=== PATIENT | female | born 1995 | race African-American/Black ===

== ENCOUNTER 2020-09-09 07:38 | Inpatient (IN) | payer MEDICAID ==
[2020-09-09] MEDS ORDERED: Misoprostol 50 MCG (1/2 of 100 MCG) Tab VAG ONE ×2 (07:40→13:00)
[2020-09-09] MEDS ORDERED: Sodium Chloride 0.9% 10 ML Syringe FLUSH PRN ×2 (07:41→09:47)
[2020-09-09] MEDS ORDERED: diphenhydrAMINE 50 MG/ML SDV IVPUSH PRN ×2 (09:47)
[2020-09-09] MEDS ORDERED: Naloxone 0.4 MG/ML SDV IVPUSH PRN (09:47)
[2020-09-09] MEDS ORDERED: Acetaminophen 325 MG Tab PO PRN (09:47)
[2020-09-09] MEDS ORDERED: Ondansetron 4 MG/2 ML SDV IV PRN (09:47)
[2020-09-09] MEDS ORDERED: Lactated Ringers 1,000 ML IV ONE (09:47)
[2020-09-09] MEDS ORDERED: ePHEDrine 50 MG/ML SDV IVPUSH PRN ×2 (09:47)
[2020-09-09] MEDS ORDERED: Ropivacaine 200 MG in Premix Bag 1 BAG EPIDUR SCH (10:00)
--- NOTE | 2020-09-09 10:15 | PCM.LDHP ---
L&D History of Present Illness - General Date of Service: 09/09/20 Admit Problem/Dx: Patient Status Order with Admit Dx/Problem 09/09/20 09:48 Patient Status [ADT] Routine Admission Diagnosis/Problem Admission Diagnosis/Problem - Related Data Allergies/Adverse Reactions: Allergies Allergy/AdvReac Type Severity Reaction Status Date / Time Penicillins Allergy Hives Verified 08/17/20 16:21 Home Medications: Home Meds Albuterol [Ventolin HFA] 1 - 2 puff IN ASDIRECTED PRN 07/05/20 [History] No122/Iron/Folic Acid [ Multi Tablet] 1 tab PO DAILY 08/17/20 [History] Sertraline [Zoloft] 25 mg PO DAILY 08/17/20 [History] Past Medical History Respiratory History: Reports: Asthma [employer] History: Reports: Other OB/BYN History: Lost baby 2019 states she had her water broke to early. Hematologic History: Reports: Anemia - Past Surgical History Other HEENT Surgeries/Procedures: wears glasses Respiratory Surgical History: Reports: None Social & Family History - Tobacco Use Tobacco Use Status *Q: Never Tobacco User Second Hand Smoke Exposure: No - Caffeine Use Caffeine Use: Reports: Coffee, Soda - Recreational Drug Use Recreational Drug Use: No H&P Review of Systems - Review of Systems: Review Of Systems: See Below General: Reports: No Symptoms HEENT: Reports: No Symptoms Pulmonary: Reports: No Symptoms Cardiovascular: Reports: No Symptoms Gastrointestinal: Reports: No Symptoms Genitourinary: Reports: No Symptoms Musculoskeletal: Reports: No Symptoms Skin: Reports: No Symptoms Psychiatric: Reports: No Symptoms Neurological: Reports: No Symptoms Hematologic/Lymphatic: Reports: No Symptoms Immunologic: Reports: No Symptoms L&D Exam - Exam Exam: See Below - Vital Signs Vital Signs: Last Vital Signs Temp 36.5 C 09/09/20 08:23 Pulse 97 09/09/20 08:23 Resp 16 09/09/20 08:58 BP 103/69 09/09/20 08:58 Pulse Ox 96 09/09/20 08:23 Weight: 68.039 kg - OB Specific Contraction Duration (sec): 30-80 Contraction Frequency (min): 2-4.5 Contraction Intensity: Moderate Movement: Active Heart Tones: Present Heart Rate (FHR) Variability: Moderate (6-25 bmp) Presentation: Vertex - Morales Score Morales Score Cervix Position: Posterior Morales Score Consistency: Soft Morales Score Effacement: 51-70% Morales Score Dilation: Closed Morales Score Infant's Station: -1 ,0 Morales Score Total: 6 - Exam General: Alert, Oriented HEENT: PERRLA, Conjunctiva Clear, EACs Clear, EOMI, Hearing Intact, Mucosa Moist & [place], Nares Patent, Normal Nasal Septum, Posterior Pharynx Clear, TMs Clear Neck: Supple, Trachea Midline Lungs: Clear to Auscultation, Normal Respiratory Effort Cardiovascular: Regular Rate, Regular Rhythm GI/Abdominal Exam: Normal Bowel Sounds, Soft, Non-Tender, No Organomegaly, No Distention, No Abnormal Bruit, No Mass, Pelvis Stable Rectal Exam: Normal Exam, Normal Rectal Tone Genitourinary: Normal external exam, Normal bimanual exam, Normal speculum exam Back Exam: Normal Inspection, Full Range of Motion Extremities: Normal Inspection, Normal Range of Motion, Non-Tender, No Pedal Edema, Normal Capillary Refill Skin: Warm, Dry, Intact Neurological: Cranial Nerves Intact, Reflexes Equal Bilateral Psychiatric: Alert, Normal Affect, Normal Mood - Patient Data Lab Results Last 24 hrs: Laboratory Results - last 24 hr 09/09/20 09/09/20 09/09/20 Range/Units 07:41 07:41 07:51 WBC 8.0 (4.5-11.0) K/uL RBC 4.04 (3.30-5.50) M/uL Hgb 10.4 L (12.0-15.0) g/dL Hct 33.6 L (36.0-48.0) % MCV 83 (80-98) fL MCH 26 L (27-31) pg MCHC 31 L (32-36) % Plt Count 259 (150-400) K/uL Urine Color Yellow (YELLOW) Urine Appearance Clear (CLEAR) Urine pH 7.0 (5.0-8.0) Ur Specific [place] 1.020 (1.008-1.030) Urine Protein Negative (NEGATIVE) mg/dL Urine Glucose (UA) Negative (NEGATIVE) mg/dL Urine Ketones Negative (NEGATIVE) mg/dL Urine Occult Blood Negative (NEGATIVE) Urine Nitrite Negative (NEGATIVE) Urine Bilirubin Negative (NEGATIVE) Urine Urobilinogen 0.2 (0.2-1.0) EU/dL Ur Leukocyte Esterase Negative (NEGATIVE) Urine Opiates Screen Negative (NEGATIVE) Ur Oxycodone Screen Negative (NEGATIVE) Urine Methadone Screen Negative (NEGATIVE) Ur Propoxyphene Screen Negative (NEGATIVE) Ur Barbiturates Screen Negative (NEGATIVE) Ur Tricyclics Screen Negative (NEGATIVE) Ur Phencyclidine Scrn Negative (NEGATIVE) Ur Amphetamine Screen Negative (NEGATIVE) U Methamphetamines Scrn Negative (NEGATIVE) Urine MDMA Screen Negative (NEGATIVE) U Benzodiazepines Scrn Negative (NEGATIVE) U Cocaine Metab Screen Negative (NEGATIVE) U Marijuana (THC) Screen Negative (NEGATIVE) Result Diagrams: 09/09/20 07:51 - Problem List (1) SNOMED Code(s): 43019904 ICD Code: Z34.90 - ENCNTR FOR SUPRVSN OF NORMAL , UNSP, UNSP TRIMESTER Status: Acute Current Visit: Yes Qualifiers: Weeks of gestation: 38 weeks Qualified Code(s): Z3A.38 - 38 weeks gestation of (2) IUGR (intrauterine growth restriction) Status: Acute Priority: High Current Visit: Yes (3) Encounter for induction of labor SNOMED Code(s): 785881157 ICD Code: Z34.90 - ENCNTR FOR SUPRVSN OF NORMAL , UNSP, UNSP TRIMESTER Status: Acute Current Visit: Yes (4) History of SNOMED Code(s): 092923839 ICD Code: Z87.59 - PERSONAL HISTORY OF COMP OF PREG, CHLDBRTH AND THE PUERP Status: Acute Priority: High Current Visit: Yes (5) History of delivery SNOMED Code(s): 204476798 ICD Code: Z87.51 - PERSONAL HISTORY OF PRE-TERM LABOR Status: Acute Current Visit: Yes (6) History of pre-term labor SNOMED Code(s): 141323511 ICD Code: Z87.51 - PERSONAL HISTORY OF PRE-TERM LABOR Status: Acute Current Visit: Yes Problem List Initiated/Reviewed/Updated: Yes Orders Last 24hrs: Active Orders 24 hr Category Date Time Status Patient Status [ADT] Routine ADT 09/09/20 09:48 Active Ambulate [RC] PER UNIT ROUTINE Care 09/09/20 09:47 Active Communication Order [RC] ASDIRECTED Care 09/09/20 09:48 Active Communication Order [RC] ASDIRECTED Care 09/09/20 09:48 Active Communication Order [RC] ROUTINE Care 09/09/20 09:48 Active Communication Order [RC] ROUTINE Care 09/09/20 09:48 Active Communication Order [RC] ROUTINE Care 09/09/20 09:48 Active Non Stress Test [RC] Click to Edit Care 09/09/20 09:48 Active Influenza Vaccine Charge [RC] .DISCHARGE Care 09/09/20 08:28 Active Insert Urinary Catheter [OM.PC] ASDIRECTED Care 09/09/20 10:00 Ordered Local Anesthetic Infusion Pump [RC] ASDIRECTED Care 09/09/20 09:48 Active Notify Provider Vital Signs [RC] PRN Care 09/09/20 09:47 Active Notify Provider [RC] PRN Care 09/09/20 09:48 Active Oxygen Therapy [RC] ASDIRECTED Care 09/09/20 09:48 Active PCEA Epidural [RC] ASDIRECTED Care 09/09/20 09:49 Active Peripheral IV Care [RC] . DIRECTED Care 09/09/20 09:49 Active Pulse Oximetry [RC] ASDIRECTED Care 09/09/20 09:48 Active Up ad Deidra [RC] ASDIRECTED Care 09/09/20 09:47 Active Urinary Catheter Assessment [RC] ASDIRECTED Care 09/09/20 09:49 Active VTE/DVT Education [RC] Click to Edit Care 09/09/20 09:50 Active Vital Signs [RC] PER UNIT ROUTINE Care 09/09/20 09:48 Active Regular Diet [DIET] Diet 09/09/20 Breakfast Active BPP wo NST [US] Routine Exams 09/09/20 07:40 Taken Acetaminophen [TylenoL] Med 09/09/20 09:47 Active 650 mg PO Q4H PRN Flu Vacc [id number](6Mos Up)/Pf [Fluzone Quad [id number] Med 09/10/20 11:00 Once Syringe] 60 mcg IM ONETIME ONE Lactated Ringers [Ringers, Lactated] 1,000 ml Med 09/09/20 09:47 Active IV .BOLUS Naloxone [Narcan] Med 09/09/20 09:47 Active 0.1 mg IVPUSH ASDIRECTED PRN Ondansetron [Zofran] Med 09/09/20 09:47 Ordered 4 mg IV Q4H PRN Oxytocin/Normal Saline [Pitocin in NS 20 Units/1,000 ML Med 09/09/20 10:00 Ordered ] 20 unit in 1,000 ml IV TITRATE Ropivacaine [Naropin 0.2%] 200 mg Med 09/09/20 10:00 Ordered Premix Bag 1 bag EPIDUR ASDIRECTED Sodium Chloride 0.9% [Saline Flush] Med 09/09/20 07:41 Active 10 ml FLUSH ASDIRECTED PRN Sodium Chloride 0.9% [Saline Flush] Med 09/09/20 09:47 Ordered 10 ml FLUSH ASDIRECTED PRN diphenhydrAMINE [Benadryl] Med 09/09/20 09:47 Active 25 mg IVPUSH Q6H PRN diphenhydrAMINE [Benadryl] Med 09/09/20 09:47 Active 50 mg IVPUSH Q6H PRN ePHEDrine [ePHEDrine sulfate] Med 09/09/20 09:47 Active 10 mg IVPUSH ASDIRECTED PRN ePHEDrine [ePHEDrine sulfate] Med 09/09/20 09:47 Active 10 mg IVPUSH ASDIRECTED PRN DVT/VTE Prophylaxis Reflex [OM.PC] Routine Oth 09/09/20 09:47 Ordered Epidural Catheter Management [OM.PC] Routine Oth 09/09/20 09:48 Ordered Epidural Catheter Management [OM.PC] Urgent Oth 09/09/20 09:48 Ordered Peripheral IV Insertion Pediatric [OM.PC] Routine Oth 09/09/20 09:48 Ordered Saline Lock Insert [OM.PC] Routine Oth 09/09/20 07:41 Ordered Saline Lock Insert [OM.PC] Routine Oth 09/09/20 09:48 Ordered Resuscitation Status Routine Resus Stat 09/09/20 09:47 Ordered Medication Orders Acetaminophen (Tylenol) 650 mg PO Q4H PRN PRN Reason: Pain (Mild 1-3) and fever Diphenhydramine HCl (Benadryl) 25 mg IVPUSH Q6H PRN PRN Reason: Itching Diphenhydramine HCl (Benadryl) 50 mg IVPUSH Q6H PRN PRN Reason: Itching Ephedrine Sulfate (Ephedrine Sulfate) 10 mg IVPUSH ASDIRECTED PRN PRN Reason: Hypotension Ephedrine Sulfate (Ephedrine Sulfate) 10 mg IVPUSH ASDIRECTED PRN PRN Reason: Hypotension Ropivacaine 200 mg/ Premix 100 mls @ 0 mls/hr EPIDUR ASDIRECTED PA Lactated Ringer's (Ringers, Lactated) 1,000 mls @ 999 mls/hr IV .BOLUS ONE Stop: 09/09/20 10:47 Oxytocin/Sodium Chloride (Pitocin In Ns 20 Units/1,000 Ml) 20 unit in 1,000 mls @ 6 mls/hr IV TITRATE PA; Protocol Influenza Virus Vaccine (Fluzone Quad Syringe) 60 mcg IM ONETIME ONE Stop: 09/10/20 11:01 Naloxone HCl (Narcan) 0.1 mg IVPUSH ASDIRECTED PRN PRN Reason: Oversedation Ondansetron HCl (Zofran) 4 mg IV Q4H PRN PRN Reason: Nausea/Vomiting Sodium Chloride (Saline Flush) 10 ml FLUSH ASDIRECTED PRN PRN Reason: Keep Vein Open Sodium Chloride (Saline Flush) 10 ml FLUSH ASDIRECTED PRN PRN Reason: Keep Vein Open Assessment/Plan Comment:: 09/09/2020 25 yo here at 38 2/7 for a medical induction for IUGR Patient has been being followed by MFM and planned induction for 38 wks per their guidelines SVE-0.5-60/-1 Cytotec placed vaginally 50 mcg FHTs category one Labs- B positive, HIV neg, Hep B neg, Hep C neg, RPR nonreactive, GBS negative, Rubella Immune, Hgb-10.4 History of loss at 21 weeks Plan- Monitor for active labor monitor FHTS Patient may eat regular diet till epidural placement Patient may have epidural for pain control once labor is established Patient may be up ad deidra Patient may get in tub Plan and anticipate a vaginal delivery
[2020-09-09] MEDS ORDERED: Ropivacaine 100 ML ONE (16:20)
--- NOTE | 2020-09-09 18:23 | PCM.PNLD ---
Labor Progress Note - VS & Meds Vital Signs: Last Vital Signs Temp 36.5 C 09/09/20 14:00 Pulse 80 09/09/20 17:55 Resp 16 09/09/20 17:55 BP 108/74 09/09/20 17:55 Pulse Ox 98 09/09/20 17:55 Active Medications: Current Medications Acetaminophen (Tylenol) 650 mg PO Q4H PRN PRN Reason: Pain (Mild 1-3) and fever Diphenhydramine HCl (Benadryl) 25 mg IVPUSH Q6H PRN PRN Reason: Itching Diphenhydramine HCl (Benadryl) 50 mg IVPUSH Q6H PRN PRN Reason: Itching Ephedrine Sulfate (Ephedrine Sulfate) 10 mg IVPUSH ASDIRECTED PRN PRN Reason: Hypotension Ephedrine Sulfate (Ephedrine Sulfate) 10 mg IVPUSH ASDIRECTED PRN PRN Reason: Hypotension Ropivacaine 200 mg/ Premix 100 mls @ 0 mls/hr EPIDUR ASDIRECTED PA Oxytocin/Sodium Chloride (Pitocin In Ns 20 Units/1,000 Ml) 20 unit in 1,000 mls @ 6 mls/hr IV TITRATE PA; Protocol Last Admin: 09/09/20 17:51 Dose: 2 munits/min, 6 mls/hr Documented by: Influenza Virus Vaccine (Fluzone Quad [id number] Syringe) 60 mcg IM ONETIME ONE Stop: 09/10/20 11:01 Naloxone HCl (Narcan) 0.1 mg IVPUSH ASDIRECTED PRN PRN Reason: Oversedation Ondansetron HCl (Zofran) 4 mg IV Q4H PRN PRN Reason: Nausea/Vomiting Sodium Chloride (Saline Flush) 10 ml FLUSH ASDIRECTED PRN PRN Reason: Keep Vein Open Sodium Chloride (Saline Flush) 10 ml FLUSH ASDIRECTED PRN PRN Reason: Keep Vein Open Discontinued Medications Lactated Ringer's (Ringers, Lactated) 1,000 mls @ 999 mls/hr IV .BOLUS ONE Stop: 09/09/20 10:47 Last Admin: 09/09/20 13:35 Dose: 999 mls/hr Documented by: Ropivacaine (Naropin 0.2%) Confirm Administered Dose 100 mls @ as directed .ROUTE .STK-MED ONE Stop: 09/09/20 16:21 Misoprostol (Cytotec) 50 mcg VAG ONETIME ONE Stop: 09/09/20 07:41 Last Admin: 09/09/20 08:59 Dose: 50 mcg Documented by: Misoprostol (Cytotec) 25 mcg VAG ONETIME ONE Stop: 09/09/20 13:01 Last Admin: 09/09/20 13:23 Dose: Not Given Documented by: - Uterine Contractions Uterine Monitoring Mode: External [employer] Contraction Frequency (min): 1-7 Contraction Duration (sec): 50-80 Contraction Intensity: Strong Uterine Resting Tone: Soft - Monitoring Monitor Mode: External Ultrasound Heart Rate (FHR) Variability: Moderate (6-25 bmp) Accelerations: Present, 15x15 Decelerations: None - Vaginal Exam Dilation (cm): 4 Effacement (Percent): 80 Station: -1 Cervical Position: Midposition Sterile Vaginal Exam Performed By: Radha Roman - Labor Progress (Free Text) Labor Progress: 09/09/2020 Patient requested and epidural and is now comfortable with epidural. SVE-4/80/-1, AROM for clear fluid Pitocin started per protocol FHTs category one-did have a few variables before epidural placement Plan- Continue to monitor labor Continue to monitor FHTs Continue pitocin per protocol Continue epidural for pain management Plan and anticipate a vaginal delivery
[2020-09-09] MEDS ORDERED: Docusate Sodium 100 MG Cap PO PRN (20:29)
[2020-09-09] MEDS ORDERED: Benzocaine 20% Top Spray 56 GM Bottle TOP ONE (20:29)
[2020-09-09] MEDS ORDERED: Ibuprofen 200 MG Tab, 24 Tab Bulk Bottle PO PRN (20:29)
[2020-09-09] MEDS ORDERED: Lanolin 100% Cream 40 GM Tube TOP ONE (20:29)
[2020-09-09] MEDS ORDERED: Acetaminophen 325 MG Tab, 50 Tab Bulk Bottle PO PRN (20:29)
[2020-09-09] MEDS ORDERED: Witch Hazel Medicated Pads 100/Jar TOP ONE (20:29)
--- NOTE | 2020-09-09 20:57 | PCM.DEL ---
L & D Note - General Info Date of Service: 09/09/20 Mother's Due Date: 09/22/20 - Delivery Note Labor: Augmented by Oxytocin Cervical Ripening Method: Misoprostil Delivery Outcome: Livebirth Infant Delivery Method: Spontaneous Vaginal Delivery-Single Delivery Mode: Spontaneous Presentation: Vertex Nuchal Cord: Present (times one), Reduced Anesthesia Type: Epidural Laceration: 1st Degree, Perineal Suture type: Chromic Suture size: 3-0 Placenta: Intact, Spontaneous Cord: 3 Vessels Estimated Blood Loss: 200 Resuscitation Needed: No Morley: Bulb Syringe, Stimulated, Warmed, Whitt Used Provider: Radha Roman Score 1 min: 8 Score 5 min: 9 Second Stage Interventions: Reports: Second Nurse Assessed Progress of Descent, Second Nurse Reviewed Contraction Pattern, Second Nurse Reviewed Heart Tones, Encouragement Given, Pushing Effectively, Pushing, McRobert's Position, Pushing, Stirrups/Leg Supports Delivery Comments (Free Text/Narrative):: 09/09/2020 25 yo delivered a viable female in DOYLE position at 2003 on 09/09/2020 over an intact perineum. After delivery of head a nuchal cord was noted times one and reduced easily. Infant then was delivered rest of way and brought up to mothers abdomen and placed on prewarmed blankets. was dried and stimulated before crying. Delayed cord clamping was done for approximately 90 seconds before double clamping and then father of infant was able to cut the cord. was still not crying or pinking up well so brought to warmer for stimulation and bulb suction. Did deep suction times once for 2ml of clear amniotic fluid and mucous, then began to cry vigorously and pink in color. Infant then brought to mother for skin to skin. APGARS-8/9, weight- 6lbs 7oz, length-19.5 inches, Placenta came Manzano and intact, three vessel cord, EBL-200ml. did have a first degree perineal laceration repaired in usual fashion, no lacerations noted of vagina, labia, rectum or cervix. now skin to skin with mother in labor and delivery room and both stable. Stages of labor- [id number] - General Info Date of Service: 09/09/20 Functional Status: Reports: Pain Controlled - Review of Systems General: Reports: No Symptoms HEENT: Reports: No Symptoms Pulmonary: Reports: No Symptoms Cardiovascular: Reports: No Symptoms Gastrointestinal: Reports: No Symptoms Genitourinary: Reports: No Symptoms Musculoskeletal: Reports: No Symptoms Skin: Reports: No Symptoms Neurological: Reports: No Symptoms Psychiatric: Reports: No Symptoms - Patient Data Vitals - Most Recent: Last Vital Signs Temp 36.5 C 09/09/20 14:00 Pulse 74 09/09/20 18:20 Resp 16 09/09/20 18:20 BP 104/73 09/09/20 18:20 Pulse Ox 98 09/09/20 18:20 Weight - Most Recent: 68.039 kg I&O - Last 24 Hours: Intake & Output 09/09/20 09/09/20 09/09/20 06:59 14:59 22:59 Intake Total 1240 Balance 1240 Lab Results Last 24 Hours: Laboratory Results - last 24 hr 09/09/20 09/09/20 09/09/20 Range/Units 07:41 07:41 07:51 WBC 8.0 (4.5-11.0) K/uL RBC 4.04 (3.30-5.50) M/uL Hgb 10.4 L (12.0-15.0) g/dL Hct 33.6 L (36.0-48.0) % MCV 83 (80-98) fL MCH 26 L (27-31) pg MCHC 31 L (32-36) % Plt Count 259 (150-400) K/uL Urine Color Yellow (YELLOW) Urine Appearance Clear (CLEAR) Urine pH 7.0 (5.0-8.0) Ur Specific [place] 1.020 (1.008-1.030) Urine Protein Negative (NEGATIVE) mg/dL Urine Glucose (UA) Negative (NEGATIVE) mg/dL Urine Ketones Negative (NEGATIVE) mg/dL Urine Occult Blood Negative (NEGATIVE) Urine Nitrite Negative (NEGATIVE) Urine Bilirubin Negative (NEGATIVE) Urine Urobilinogen 0.2 (0.2-1.0) EU/dL Ur Leukocyte Esterase Negative (NEGATIVE) Urine Opiates Screen Negative (NEGATIVE) Ur Oxycodone Screen Negative (NEGATIVE) Urine Methadone Screen Negative (NEGATIVE) Ur Propoxyphene Screen Negative (NEGATIVE) Ur Barbiturates Screen Negative (NEGATIVE) Ur Tricyclics Screen Negative (NEGATIVE) Ur Phencyclidine Scrn Negative (NEGATIVE) Ur Amphetamine Screen Negative (NEGATIVE) U Methamphetamines Scrn Negative (NEGATIVE) Urine MDMA Screen Negative (NEGATIVE) U Benzodiazepines Scrn Negative (NEGATIVE) U Cocaine Metab Screen Negative (NEGATIVE) U Marijuana (THC) Screen Negative (NEGATIVE) Med Orders - Current: Current Medications Acetaminophen (Tylenol) 650 mg PO Q4H PRN PRN Reason: Pain (Mild 1-3) and fever Acetaminophen (Tylenol Bulk Bottle) 0 mg PO Q4H PRN PRN Reason: Pain Benzocaine (Dadi-H-Axrivcv 20% Welcome) 0 gm TOP ONETIME ONE Stop: 09/09/20 20:30 Diphenhydramine HCl (Benadryl) 25 mg IVPUSH Q6H PRN PRN Reason: Itching Diphenhydramine HCl (Benadryl) 50 mg IVPUSH Q6H PRN PRN Reason: Itching Docusate Sodium (Colace) 100 mg PO BID PRN PRN Reason: Constipation Emollient Ointment (Lansinoh Hpa) 1 gm TOP ONETIME ONE Stop: 09/09/20 20:30 Ephedrine Sulfate (Ephedrine Sulfate) 10 mg IVPUSH ASDIRECTED PRN PRN Reason: Hypotension Ephedrine Sulfate (Ephedrine Sulfate) 10 mg IVPUSH ASDIRECTED PRN PRN Reason: Hypotension Ropivacaine 200 mg/ Premix 100 mls @ 0 mls/hr EPIDUR ASDIRECTED PA Last Admin: 09/09/20 16:48 Dose: 10 mls/hr Documented by: Oxytocin/Sodium Chloride (Pitocin In Ns 20 Units/1,000 Ml) 20 unit in 1,000 mls @ 6 mls/hr IV TITRATE PA; Protocol Last Titration: 09/09/20 19:16 Dose: 8 munits/min, 24 mls/hr Documented by: Ibuprofen (Motrin Bulk Bottle) 600 mg PO Q6H PRN PRN Reason: Pain Influenza Virus Vaccine (Fluzone Quad [id number] Syringe) 60 mcg IM ONETIME ONE Stop: 09/10/20 11:01 Naloxone HCl (Narcan) 0.1 mg IVPUSH ASDIRECTED PRN PRN Reason: Oversedation Ondansetron HCl (Zofran) 4 mg IV Q4H PRN PRN Reason: Nausea/Vomiting Sodium Chloride (Saline Flush) 10 ml FLUSH ASDIRECTED PRN PRN Reason: Keep Vein Open Sodium Chloride (Saline Flush) 10 ml FLUSH ASDIRECTED PRN PRN Reason: Keep Vein Open Alfonso Murphy (Tucks) 1 pad TOP ONETIME ONE Stop: 09/09/20 20:30 Discontinued Medications Lactated Ringer's (Ringers, Lactated) 1,000 mls @ 999 mls/hr IV .BOLUS ONE Stop: 09/09/20 10:47 Last Admin: 09/09/20 13:35 Dose: 999 mls/hr Documented by: Ropivacaine (Naropin 0.2%) Confirm Administered Dose 100 mls @ as directed .ROUTE .STK-MED ONE Stop: 09/09/20 16:21 Misoprostol (Cytotec) 50 mcg VAG ONETIME ONE Stop: 09/09/20 07:41 Last Admin: 09/09/20 08:59 Dose: 50 mcg Documented by: Misoprostol (Cytotec) 25 mcg VAG ONETIME ONE Stop: 09/09/20 13:01 Last Admin: 09/09/20 13:23 Dose: Not Given Documented by: - Exam General: Alert, Oriented, Cooperative HEENT: Pupils Equal, Pupils Reactive, EOMI, Mucous Membr. Moist/[place] Neck: Supple Lungs: Clear to Auscultation, Normal Respiratory Effort Cardiovascular: Regular Rate, Regular Rhythm GI/Abdominal Exam: Normal Bowel Sounds, Soft, Non-Tender, No Organomegaly, No Distention, No Abnormal Bruit, No Mass, Pelvis Stable (Female) Exam: Normal External Exam, Normal Speculum Exam, Normal Bimanual Exam, Enlarged Uterus, Vaginal Bleeding Back Exam: Normal Inspection, Full Range of Motion Extremities: Normal Inspection, Normal Range of Motion, Non-Tender, No Pedal Edema, Normal Capillary Refill Skin: Warm, Dry, Intact Wound/Incisions: Healing Well Neurological: No New Focal Deficit Psy/Mental Status: Alert, Normal Affect, Normal Mood - Problem List & Annotations (1) SNOMED Code(s): 26193555 Code(s): Z34.90 - ENCNTR FOR SUPRVSN OF NORMAL , UNSP, UNSP TRIMESTER Status: Acute Current Visit: Yes Qualifiers: Weeks of gestation: 38 weeks Qualified Code(s): Z3A.38 - 38 weeks gestation of (2) IUGR (intrauterine growth restriction) Status: Acute Priority: High Current Visit: Yes (3) Encounter for induction of labor SNOMED Code(s): 883389726 Code(s): Z34.90 - ENCNTR FOR SUPRVSN OF NORMAL , UNSP, UNSP TRIMESTER Status: Acute Current Visit: Yes (4) History of SNOMED Code(s): 656556802 Code(s): Z87.59 - PERSONAL HISTORY OF COMP OF PREG, CHLDBRTH AND THE PUERP Status: Acute Priority: High Current Visit: Yes (5) History of delivery SNOMED Code(s): 823397000 Code(s): Z87.51 - PERSONAL HISTORY OF PRE-TERM LABOR Status: Acute Current Visit: Yes (6) History of pre-term labor SNOMED Code(s): 166182901 Code(s): Z87.51 - PERSONAL HISTORY OF PRE-TERM LABOR Status: Acute Current Visit: Yes (7) Normal vaginal delivery SNOMED Code(s): 73735858, 979119508 Code(s): O80 - ENCOUNTER FOR FULL-TERM UNCOMPLICATED DELIVERY Status: Acute Current Visit: Yes (8) Perineal laceration SNOMED Code(s): 088417392 Code(s): JEI6472 - Status: Acute Current Visit: Yes (9) (infant) SNOMED Code(s): 854038808 Code(s): Z78.9 - OTHER SPECIFIED HEALTH STATUS Status: Acute Current Visit: Yes (10) IUGR (intrauterine growth restriction) affecting care of mother SNOMED Code(s): 079653381 Code(s): O36.5990 - MATERN CARE FOR OTH OR SUSP POOR FETL GRTH, UNSP TRI, UNSP Status: Acute Current Visit: Yes Qualifiers: Fetus number: single or unspecified fetus Trimester: third trimester Qualified Code(s): O36.5930 - Maternal care for other known or suspected poor growth, third trimester, not applicable or unspecified - Problem List Review Problem List Initiated/Reviewed/Updated: Yes - My Orders Last 24 Hours: My Active Orders 09/09/20 07:40 BPP wo NST [US] Routine 09/09/20 07:41 Sodium Chloride 0.9% [Saline Flush] 10 ml FLUSH ASDIRECTED PRN Saline Lock Insert [OM.PC] Routine 09/09/20 Breakfast Regular Diet [DIET] 09/09/20 08:28 Influenza Vaccine Charge [RC] .DISCHARGE 09/09/20 09:47 Ambulate [RC] PER UNIT ROUTINE Notify Provider Vital Signs [RC] PRN Up ad Kevin [RC] ASDIRECTED Acetaminophen [TylenoL] 650 mg PO Q4H PRN Naloxone [Narcan] 0.1 mg IVPUSH ASDIRECTED PRN Ondansetron [Zofran] 4 mg IV Q4H PRN Sodium Chloride 0.9% [Saline Flush] 10 ml FLUSH ASDIRECTED PRN diphenhydrAMINE [Benadryl] 25 mg IVPUSH Q6H PRN diphenhydrAMINE [Benadryl] 50 mg IVPUSH Q6H PRN ePHEDrine [ePHEDrine sulfate] 10 mg IVPUSH ASDIRECTED PRN ePHEDrine [ePHEDrine sulfate] 10 mg IVPUSH ASDIRECTED PRN DVT/VTE Prophylaxis Reflex [OM.PC] Routine Resuscitation Status Routine 09/09/20 09:48 Patient Status [ADT] Routine Communication Order [RC] ASDIRECTED Communication Order [RC] ASDIRECTED Communication Order [RC] ROUTINE Communication Order [RC] ROUTINE Communication Order [RC] ROUTINE Local Anesthetic Infusion Pump [RC] ASDIRECTED Notify Provider [RC] PRN Oxygen Therapy [RC] ASDIRECTED Pulse Oximetry [RC] ASDIRECTED Vital Signs [RC] PER UNIT ROUTINE Epidural Catheter Management [OM.PC] Routine Epidural Catheter Management [OM.PC] Urgent Peripheral IV Insertion Pediatric [OM.PC] Routine Saline Lock Insert [OM.PC] Routine 09/09/20 09:49 PCEA Epidural [RC] ASDIRECTED Peripheral IV Care [RC] . DIRECTED Urinary Catheter Assessment [RC] ASDIRECTED 09/09/20 09:50 VTE/DVT Education [RC] Click to Edit 09/09/20 10:00 Insert Urinary Catheter [OM.PC] ASDIRECTED Oxytocin/Normal Saline [Pitocin in NS 20 Units/1,000 ML] 20 unit in 1,000 ml IV TITRATE Ropivacaine [Naropin 0.2%] 200 mg Premix Bag 1 bag EPIDUR ASDIRECTED 09/09/20 20:29 Patient Status [ADT] Routine Vital Signs [RC] PFP Acetaminophen [Tylenol Bulk Bottle] See Dose Instructions PO Q4H PRN Benzocaine [Fjki-W-Ulkempc 20% Welcome] See Dose Instructions TOP ONETIME ONE Docusate Sodium [Colace] 100 mg PO BID PRN Ibuprofen [Motrin Bulk Bottle] 600 mg PO Q6H PRN Lanolin [Lansinoh HPA] 1 gm TOP ONETIME ONE witch Cailin [Tucks] 1 pad TOP ONETIME ONE Assess Lochia [WOMSER] Per Unit Routine Assess Uterine Involution [WOMSER] Per Unit Routine 09/09/20 20:32 Ice Therapy [OM.PC] Per Unit Routine Perineal Care [OM.PC] Per Unit Routine Sitz Bath [OM.PC] Per Unit Routine 09/10/20 06:00 CBC WITH AUTO DIFF [HEME] Routine 09/10/20 11:00 Flu Vacc [id number](6Mos Up)/Pf [Fluzone Quad Syringe] 60 mcg IM ONETIME ONE - Assessment Assessment:: 09/09/2020 25 yo G3 now P2 delivered without complications IUGR Perineal laceration Pumping and bottlefeeding breastmilk and formula - Plan Plan:: 09/09/2020 25 yo here at 38 2/7 for a medical induction for IUGR Patient has been being followed by MFM and planned induction for 38 wks per their guidelines SVE-0.5-60/-1 Cytotec placed vaginally 50 mcg FHTs category one Labs- B positive, HIV neg, Hep B neg, Hep C neg, RPR nonreactive, GBS negative, Rubella Immune, Hgb-10.4 History of loss at 21 weeks Plan- Monitor for active labor monitor FHTS Patient may eat regular diet till epidural placement Patient may have epidural for pain control once labor is established Patient may be up ad kevin Patient may get in tub Plan and anticipate a vaginal delivery 09/09/2020 Routine cares Encourage good perineal care Encourage and support pumping and bottle feeding Plan a 24-48 hr discharge
[2020-09-10] MEDS: Acetaminophen/Codeine 300-30 MG Tab PO PRN ×5 (00:18→16:49)
--- NOTE | 2020-09-10 10:09 | PCM.PNPP ---
- General Info Date of Service: 09/10/20 - Review of Systems General: Reports: No Symptoms HEENT: Reports: No Symptoms Pulmonary: Reports: No Symptoms Cardiovascular: Reports: No Symptoms Gastrointestinal: Reports: No Symptoms Genitourinary: Reports: No Symptoms Musculoskeletal: Reports: No Symptoms Skin: Reports: No Symptoms Neurological: Reports: No Symptoms Psychiatric: Reports: No Symptoms - General Info Date of Service: 09/10/20 - Patient Data Vital Signs - Most Recent: Last Vital Signs Temp 36.4 C 09/10/20 08:18 Pulse 73 09/10/20 08:18 Resp 14 09/10/20 08:18 BP 112/74 09/10/20 08:18 Pulse Ox 100 09/10/20 08:18 Weight - Most Recent: 68.039 kg Lab Results - Last 24 Hours: Laboratory Results - last 24 hr 09/10/20 Range/Units 05:55 WBC 9.7 (4.5-11.0) K/uL RBC 4.09 (3.30-5.50) M/uL Hgb 10.6 L (12.0-15.0) g/dL Hct 33.9 L (36.0-48.0) % MCV 83 (80-98) fL MCH 26 L (27-31) pg MCHC 31 L (32-36) % Plt Count 242 (150-400) K/uL Neut % (Auto) 75 H (36-66) % Lymph % (Auto) 13 L (24-44) % [place] % (Auto) 11 H (2-6) % Eos % (Auto) 1 L (2-4) % Baso % (Auto) 0 (0-1) % Med Orders - Current: Current Medications Acetaminophen (Tylenol) 650 mg PO Q4H PRN PRN Reason: Pain (Mild 1-3) and fever Acetaminophen (Tylenol Bulk Bottle) 0 mg PO Q4H PRN PRN Reason: Pain Last Admin: 09/09/20 21:49 Dose: 325 mg Documented by: Acetaminophen/Codeine Phosphate (Tylenol With Codeine No.3 300mg/30mg) 1 tab PO Q4H PRN PRN Reason: Pain Last Admin: 09/10/20 08:16 Dose: 1 tab Documented by: Diphenhydramine HCl (Benadryl) 25 mg IVPUSH Q6H PRN PRN Reason: Itching Diphenhydramine HCl (Benadryl) 50 mg IVPUSH Q6H PRN PRN Reason: Itching Docusate Sodium (Colace) 100 mg PO BID PRN PRN Reason: Constipation Ephedrine Sulfate (Ephedrine Sulfate) 10 mg IVPUSH ASDIRECTED PRN PRN Reason: Hypotension Ephedrine Sulfate (Ephedrine Sulfate) 10 mg IVPUSH ASDIRECTED PRN PRN Reason: Hypotension Ropivacaine 200 mg/ Premix 100 mls @ 0 mls/hr EPIDUR ASDIRECTED PA Last Admin: 09/09/20 16:48 Dose: 10 mls/hr Documented by: Oxytocin/Sodium Chloride (Pitocin In Ns 20 Units/1,000 Ml) 20 unit in 1,000 mls @ 6 mls/hr IV TITRATE [facility]; Protocol Last Titration: 09/09/20 20:05 Dose: 333 munits/min, 999 mls/hr Documented by: Ibuprofen (Motrin Bulk Bottle) 600 mg PO Q6H PRN PRN Reason: Pain Last Admin: 09/09/20 21:49 Dose: 600 mg Documented by: Influenza Virus Vaccine (Fluzone Quad [id number] Syringe) 60 mcg IM ONETIME ONE Stop: 09/10/20 11:01 Naloxone HCl (Narcan) 0.1 mg IVPUSH ASDIRECTED PRN PRN Reason: Oversedation Ondansetron HCl (Zofran) 4 mg IV Q4H PRN PRN Reason: Nausea/Vomiting Sodium Chloride (Saline Flush) 10 ml FLUSH ASDIRECTED PRN PRN Reason: Keep Vein Open Sodium Chloride (Saline Flush) 10 ml FLUSH ASDIRECTED PRN PRN Reason: Keep Vein Open Discontinued Medications Benzocaine (Wojx-K-Zcoyiib 20% [place]) 0 gm TOP ONETIME ONE Stop: 09/09/20 20:30 Last Admin: 09/09/20 21:51 Dose: 1 spr Documented by: Emollient Ointment (Lansinoh Hpa) 1 gm TOP ONETIME ONE Stop: 09/09/20 20:30 Last Admin: 09/10/20 00:11 Dose: Not Given Documented by: Lactated Ringer's (Ringers, Lactated) 1,000 mls @ 999 mls/hr IV .BOLUS ONE Stop: 09/09/20 10:47 Last Admin: 09/09/20 13:35 Dose: 999 mls/hr Documented by: Ropivacaine (Naropin 0.2%) Confirm Administered Dose 100 mls @ as directed .ROUTE .STK-MED ONE Stop: 09/09/20 16:21 Misoprostol (Cytotec) 50 mcg VAG ONETIME ONE Stop: 09/09/20 07:41 Last Admin: 09/09/20 08:59 Dose: 50 mcg Documented by: Misoprostol (Cytotec) 25 mcg VAG ONETIME ONE Stop: 09/09/20 13:01 Last Admin: 09/09/20 13:23 Dose: Not Given Documented by: Alfonso Abduljames) 1 pad TOP ONETIME ONE Stop: 09/09/20 20:30 Last Admin: 09/09/20 21:50 Dose: 1 pad Documented by: - Infant Interaction Infant Disposition, : [place] in Room with Family Infant Interaction: Holding Infant Feeding: Bottle Fed Infant Support Person: - Recovery Exam Fundal Tone: Firm Fundal Level: 1 Fingerbreadths Below Umbilicus Fundal Placement: Midline Lochia Amount: Small, Moderate Lochia Color: Rubra/Red Perineum Description: Intact, Minimal Bruising/Swelling Episiotomy/Laceration: Approximated Bladder Status: Voiding Urinary Elimination: Voided - Exam General: Alert, Oriented, Cooperative HEENT: Pupils Equal, Pupils Reactive, EOMI, Mucous Membr. Moist/[place] Neck: Supple Lungs: Clear to Auscultation, Normal Respiratory Effort Cardiovascular: Regular Rate, Regular Rhythm GI/Abdominal Exam: Normal Bowel Sounds, Soft, Non-Tender, No Organomegaly, No Distention, No Abnormal Bruit, No Mass, Pelvis Stable Extremities: Normal Inspection, Normal Range of Motion, Non-Tender, No Pedal Edema, Normal Capillary Refill Skin: Warm, Dry, Intact Wound/Incisions: Healing Well Neurological: No New Focal Deficit Psy/Mental Status: Alert, Normal Affect, Normal Mood - Problem List & Annotations (1) SNOMED Code(s): 70805765 Code(s): Z34.90 - ENCNTR FOR SUPRVSN OF NORMAL , UNSP, UNSP TRIMESTER Status: Acute Current Visit: Yes Qualifiers: Weeks of gestation: 38 weeks Qualified Code(s): Z3A.38 - 38 weeks gestation of (2) IUGR (intrauterine growth restriction) Status: Acute Priority: High Current Visit: Yes (3) Encounter for induction of labor SNOMED Code(s): 077806056 Code(s): Z34.90 - ENCNTR FOR SUPRVSN OF NORMAL , UNSP, UNSP TRIMESTER Status: Acute Current Visit: Yes (4) History of SNOMED Code(s): 029499164 Code(s): Z87.59 - PERSONAL HISTORY OF COMP OF PREG, CHLDBRTH AND THE PUERP Status: Acute Priority: High Current Visit: Yes (5) History of delivery SNOMED Code(s): 227723840 Code(s): Z87.51 - PERSONAL HISTORY OF PRE-TERM LABOR Status: Acute Current Visit: Yes (6) History of pre-term labor SNOMED Code(s): 350459428 Code(s): Z87.51 - PERSONAL HISTORY OF PRE-TERM LABOR Status: Acute Current Visit: Yes (7) Normal vaginal delivery SNOMED Code(s): 06568088, 120504633 Code(s): O80 - ENCOUNTER FOR FULL-TERM UNCOMPLICATED DELIVERY Status: Acute Current Visit: Yes (8) Perineal laceration SNOMED Code(s): 022144220 Code(s): WXE5744 - Status: Acute Current Visit: Yes (9) () SNOMED Code(s): 907139322 Code(s): Z78.9 - OTHER SPECIFIED HEALTH STATUS Status: Acute Current Visit: Yes (10) IUGR (intrauterine growth restriction) affecting care of mother SNOMED Code(s): 106670303 Code(s): O36.5990 - MATERN CARE FOR OTH OR SUSP POOR FETL GRTH, UNSP TRI, UNSP Status: Acute Current Visit: Yes Qualifiers: Fetus number: single or unspecified fetus Trimester: third trimester Qualified Code(s): O36.5930 - Maternal care for other known or suspected poor growth, third trimester, not applicable or unspecified - Problem List Review Problem List Initiated/Reviewed/Updated: Yes - My Orders Last 24 Hours: My Active Orders 09/09/20 09:47 Ambulate [RC] PER UNIT ROUTINE Notify Provider Vital Signs [RC] PRN Up ad Kevin [RC] ASDIRECTED Acetaminophen [TylenoL] 650 mg PO Q4H PRN Naloxone [Narcan] 0.1 mg IVPUSH ASDIRECTED PRN Ondansetron [Zofran] 4 mg IV Q4H PRN Sodium Chloride 0.9% [Saline Flush] 10 ml FLUSH ASDIRECTED PRN diphenhydrAMINE [Benadryl] 25 mg IVPUSH Q6H PRN diphenhydrAMINE [Benadryl] 50 mg IVPUSH Q6H PRN ePHEDrine [ePHEDrine sulfate] 10 mg IVPUSH ASDIRECTED PRN ePHEDrine [ePHEDrine sulfate] 10 mg IVPUSH ASDIRECTED PRN DVT/VTE Prophylaxis Reflex [OM.PC] Routine Resuscitation Status Routine 09/09/20 09:48 Patient Status [ADT] Routine Oxygen Therapy [RC] ASDIRECTED Pulse Oximetry [RC] ASDIRECTED Vital Signs [RC] Q4H Epidural Catheter Management [OM.PC] Routine Epidural Catheter Management [OM.PC] Urgent Peripheral IV Insertion Pediatric [OM.PC] Routine Saline Lock Insert [OM.PC] Routine 09/09/20 09:49 Peripheral IV Care [RC] Q12H 09/09/20 09:50 VTE/DVT Education [RC] Click to Edit 09/09/20 10:00 Insert Urinary Catheter [OM.PC] ASDIRECTED Oxytocin/Normal Saline [Pitocin in NS 20 Units/1,000 ML] 20 unit in 1,000 ml IV TITRATE Ropivacaine [Naropin 0.2%] 200 mg Premix Bag 1 bag EPIDUR ASDIRECTED 09/09/20 20:29 Patient Status [ADT] Routine Acetaminophen [Tylenol Bulk Bottle] See Dose Instructions PO Q4H PRN Docusate Sodium [Colace] 100 mg PO BID PRN Ibuprofen [Motrin Bulk Bottle] 600 mg PO Q6H PRN Assess Lochia [WOMSER] Per Unit Routine Assess Uterine Involution [WOMSER] Per Unit Routine 09/09/20 20:32 Ice Therapy [OM.PC] Per Unit Routine Perineal Care [OM.PC] Per Unit Routine Sitz Bath [OM.PC] Per Unit Routine 09/10/20 00:02 Acetaminophen/Codeine [Tylenol with Codeine No.3 300MG/30MG] 1 tab PO Q4H PRN 09/10/20 11:00 Flu Vacc [id number](6Mos Up)/Pf [Fluzone Quad Syringe] 60 mcg IM ONETIME ONE - Assessment Assessment:: 09/09/2020 25 yo G3 now P2 delivered without complications IUGR Perineal laceration Pumping and bottlefeeding breastmilk and formula 09/10/2020 Day One Fundus firm and bleeding decreasing Has been bottlefeeding only Pain perception slightly heightened-will send home with limited amount of Tyl enol #3 for second day Voiding and stooling Hgb 10.6 Desires discharge home after 24 hours - Plan Plan:: 09/09/2020 25 yo here at 38 2/7 for a medical induction for IUGR Patient has been being followed by MFM and planned induction for 38 wks per their guidelines SVE-0.5-60/-1 Cytotec placed vaginally 50 mcg FHTs category one Labs- B positive, HIV neg, Hep B neg, Hep C neg, RPR nonreactive, GBS negative, Rubella Immune, Hgb-10.4 History of loss at 21 weeks Plan- Monitor for active labor monitor FHTS Patient may eat regular diet till epidural placement Patient may have epidural for pain control once labor is established Patient may be up ad kevin Patient may get in tub Plan and anticipate a vaginal delivery 09/09/2020 Routine cares Encourage good perineal care Encourage and support pumping and bottle feeding Plan a 24-48 hr discharge 09/10/2020 Continue routine cares Continue to encourage good perineal care Continue to encourage heat pads, bathing and repositioning for pain control Discharge home after 24 hours
[2020-09-10] MEDS ORDERED: FLU VACC QS2020-21(6MOS UP)/PF 60 MCG/0.5 ML SYRINGE IM ONE (11:00)
--- NOTE | 2020-09-11 10:39 | US ---
BPP wo NST INDICATION: IUGR COMPARISON: None FINDINGS: Single live IUP heart rate: 149 BPM. Biophysical profile score: 8/8. JOLANTA: 12.5 cm. IMPRESSION: Normal biophysical profile score of 8/8.
== END 2020-09-10 20:55 | disposition home or self-care (01) | DRG 807 ==
LOC: JP.OBCHECK 07:38 → JP.OB 07:39 → OBSVTOIN 20:04 → JP.OB 20:04 → JP.MS 09-10 05:12
PROVIDERS: ADMIT Advanced Practice Midwife; ATTEND Advanced Practice Midwife
PROC: 10E0XZZ Delivery of Products of Conception, External Approach (ICD-10-PCS; principal; 2020-09-09)
PROC: 10907ZC Drainage of Amniotic Fluid, Therapeutic from Products of Conception, Via Natural or Artificial Opening (ICD-10-PCS; 2020-09-09)
PROC: 3E0P7VZ Introduction of Hormone into Female Reproductive, Via Natural or Artificial Opening (ICD-10-PCS; 2020-09-09)
PROC: 0HQ9XZZ Repair Perineum Skin, External Approach (ICD-10-PCS; 2020-09-09)
PROC: 3E033VJ Introduction of Other Hormone into Peripheral Vein, Percutaneous Approach (ICD-10-PCS; 2020-09-09)
DX: O36.5930 Maternal care for other known or suspected poor fetal growth, third trimester, not applicable or unspecified (principal); Z37.0 Single live birth; Z3A.38 38 weeks gestation of pregnancy; Z87.59 Personal history of other complications of pregnancy, childbirth and the puerperium; Z87.51 Personal history of pre-term labor; O69.81X0 Labor and delivery complicated by cord around neck, without compression, not applicable or unspecified; O70.0 First degree perineal laceration during delivery
CPT/HCPCS: 36415; 51702; 59409; 76819; 76819-26; 80305-QW; 81003; 85025; 85027; 88307; 90686; A9270-GY; G0008; J2590; J2795; J7120

== ENCOUNTER 2020-12-24 11:50 | Emergency (ER) | payer MEDICAID ==
[2020-12-24] MEDS ORDERED: Ketorolac 60 MG/2 ML SDV IM ONE (12:56)
--- NOTE | 2020-12-24 13:01 | EDM.PDOC ---
ED HPI GENERAL MEDICAL PROBLEM - General Chief Complaint: General Stated Complaint: BACK OF NECK HURTS AND HEADACHE Time Seen by Provider: 12/24/20 12:45 Source of Information: Reports: Patient, Old Records, RN History Limitations: Reports: No Limitations - History of Present Illness INITIAL COMMENTS - FREE TEXT/NARRATIVE: 25 yo black female presents with a moderated ARRIETA and neck pain. Sx's began yesterday as neck stiffness. Mild chills without definite fever. No nausea, vomiting or photophobia. No known exposures. No recent trauma or heavy lifting. Took acetaminophen without much relief. Has some nasal congestion. Is on Depo Provera. Onset: Gradual Onset Date: 12/23/20 Duration: Day(s): (1+), Getting Worse Location: Reports: Head, Neck Quality: Reports: Ache Severity: Mild Improves with: Reports: None Worsens with: Reports: Other (time) Context: Reports: Other (See HPI) Associated Symptoms: Reports: Fever/Chills (no fever), Headaches. 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 - Related Data Allergies Allergy/AdvReac Type Severity Reaction Status Date / Time Penicillins Allergy Hives Verified 08/17/20 16:21 Home Meds: Home Meds Albuterol [Ventolin HFA] 1 - 2 puff IN ASDIRECTED PRN 07/05/20 [History] No122/Iron/Folic Acid [ Multi Tablet] 1 tab PO DAILY 08/17/20 [History] Sertraline [Zoloft] 25 mg PO DAILY 08/17/20 [History] Past Medical History HEENT History: Reports: None Respiratory History: Reports: Asthma Gastrointestinal History: Reports: None Genitourinary History: Reports: None 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 Just had baby Musculoskeletal History: Reports: None Neurological History: Reports: None Psychiatric History: Reports: None Endocrine/Metabolic History: Reports: None Hematologic History: Reports: Anemia Immunologic History: Reports: None Oncologic (Cancer) History: Reports: None Dermatologic History: Reports: None - Past Surgical History Other HEENT Surgeries/Procedures: wears glasses Respiratory Surgical History: Reports: None Endocrine Surgical History: Reports: None Neurological Surgical History: Reports: None Musculoskeletal Surgical History: Reports: None Dermatological Surgical History: Reports: None Social & Family History - Tobacco Use Tobacco Use Status *Q: Current Every Day Tobacco User Years of Tobacco use: 10 Packs/Tins Daily: 0.5 Used Tobacco, but Quit: Yes Month/Year Tobacco Last Used: 12/23 - Caffeine Use Caffeine Use: Reports: Coffee - Recreational Drug Use Recreational Drug Use: No ED ROS GENERAL - Review of Systems Review Of Systems: See Below Constitutional: Reports: No Symptoms HEENT: Reports: No Symptoms Respiratory: Reports: No Symptoms Cardiovascular: Reports: No Symptoms GI/Abdominal: Denies: Nausea, Vomiting Musculoskeletal: Reports: Neck Pain (stiffness) Skin: Reports: No Symptoms Neurological: Reports: Headache ED EXAM, GENERAL - Physical Exam Exam: See Below Exam Limited By: No Limitations General Appearance: Alert, WD/WN, No Apparent Distress, Thin Eye Exam: Bilateral Eye: Normal Inspection, Other (no photophobia) Ears: Normal External Exam, Normal Canal, Hearing Grossly Normal, Normal TMs Ear Exam: Bilateral Ear: Auricle Normal, Canal Normal, TM normal Nose: Normal Inspection, No Blood Throat/Mouth: Normal Inspection, Normal Lips, Normal Oropharynx, Normal Voice, No Airway Compromise Head: Atraumatic, Normocephalic Neck: Normal Inspection Respiratory/Chest: No Respiratory Distress, Lungs Clear, Normal Breath Sounds, No Accessory Muscle Use Cardiovascular: Regular Rate, Rhythm, No Edema Back Exam: Normal Inspection. No: CVA Tenderness (R), CVA Tenderness (L) Extremities: Normal Inspection Neurological: Alert, Oriented, CN II-XII Intact, Normal Cognition, No Motor/Sensory Deficits Psychiatric: Normal Affect, Normal Mood Skin Exam: Warm, Dry, Intact, Normal Color, No Rash Course - Vital Signs Last Recorded V/S: Last Vital Signs Temp 36.7 C 12/24/20 12:49 Pulse 56 L 12/24/20 12:49 Resp 12 12/24/20 12:49 BP 133/81 12/24/20 12:49 Pulse Ox 97 12/24/20 12:49 - Orders/Labs/Meds Labs: Laboratory Tests 12/24/20 Range/Units 13:03 WBC 4.6 (4.5-11.0) K/uL RBC 5.09 (3.30-5.50) M/uL Hgb 13.3 D (12.0-15.0) g/dL Hct 42.1 (36.0-48.0) % MCV 83 (80-98) fL MCH 26 L (27-31) pg MCHC 32 (32-36) % Plt Count 360 (150-400) K/uL Meds: Medications Discontinued Medications Generic Name Dose Route Start Last Admin Trade Name Freq PRN Reason Stop Dose Admin Ketorolac Tromethamine 45 mg 12/24/20 12:56 12/24/20 13:05 Toradol IM 12/24/20 12:57 45 mg ONETIME ONE Administration Departure - Departure Time of Disposition: 13:20 Disposition: Home, Self-Care 01 Condition: Good Clinical Impression: Viral illness - Discharge Information *PRESCRIPTION DRUG MONITORING PROGRAM REVIEWED*: Not Applicable *COPY OF PRESCRIPTION DRUG MONITORING REPORT IN PATIENT JEFF: Not Applicable Referrals: PCP,None [Primary Care Provider] - Forms: ED Department Discharge Additional Instructions: ibuprofen 600 mg every 6-8 hrs with food for pain relief. Add acetaminophen 650 mg every 4-6 hrs for added relief. Rest and drink ample fluids. Recheck with your provider as needed. Sepsis Event Note (ED) - Evaluation Sepsis Screening Result: No Definite Risk - Focused Exam Vital Signs: Vital Signs Temp Pulse Resp BP Pulse Ox 12/24/20 12:49 36.7 C 56 L 12 133/81 97 12/24/20 12:37 36.7 C 56 L 12 133/81 97
== END 2020-12-24 13:43 | disposition home or self-care (01) ==
LOC: JP.ED 11:50
DX: B34.9 Viral infection, unspecified (principal); M54.2 Cervicalgia; J45.909 Unspecified asthma, uncomplicated; Z72.0 Tobacco use; Z88.0 Allergy status to penicillin; Z79.899 Other long term (current) drug therapy
CPT/HCPCS: 36415; 85027; 96372; 99283; J1885

== ENCOUNTER 2020-12-27 20:48 | Emergency (ER) | payer MEDICAID ==
--- NOTE | 2020-12-27 21:16 | EDM.PDOC ---
ED HPI GENERAL MEDICAL PROBLEM - General Chief Complaint: ENT Problem Stated Complaint: PAINFUL TOOTH Time Seen by Provider: 12/27/20 21:05 Source of Information: Reports: Patient History Limitations: Reports: No Limitations - History of Present Illness INITIAL COMMENTS - FREE TEXT/NARRATIVE: Valeria is a 25-year-old female presenting to the ED for increased dental pain and possible dental abscess. The patient has poor dentition with multiple advanced dental caries involving numerous teeth into the dentin. She has near complete avulsion of tooth #1 down to the gumline with significant gingival swelling, tenderness, and pain. Although this is likely an obvious apical abscess, there does not appear to be anything to drain at this time. Patient reports that she has had problems on and off with this tooth for quite some time but she was unable to get it taken care of because nobody would touch it while she was . She is subsequently delivered and now comes in with marked increase in pain. 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 Just had baby Musculoskeletal History: Reports: None Neurological History: Reports: None Psychiatric History: Reports: None Endocrine/Metabolic History: Reports: None Hematologic History: Reports: Anemia Immunologic History: Reports: None Oncologic (Cancer) History: Reports: None Dermatologic History: Reports: None - Past Surgical History Other HEENT Surgeries/Procedures: wears glasses Respiratory Surgical History: Reports: None Endocrine Surgical History: Reports: None Neurological Surgical History: Reports: None Dermatological Surgical History: Reports: None Social & Family History - Tobacco Use Tobacco Use Status *Q: Current Every Day Tobacco User Years of Tobacco use: 10 Packs/Tins Daily: 0.5 - Caffeine Use Caffeine Use: Reports: Coffee, Soda - Recreational Drug Use Recreational Drug Use: No ED ROS ENT - Review of Systems Review Of Systems: See Below Constitutional: Reports: No Symptoms HEENT: Reports: Dental Pain Respiratory: Reports: No Symptoms Cardiovascular: Reports: No Symptoms Endocrine: Reports: No Symptoms GI/Abdominal: Reports: No Symptoms : Reports: No Symptoms Musculoskeletal: Reports: No Symptoms Skin: Reports: No Symptoms Neurological: Reports: No Symptoms Psychiatric: Reports: No Symptoms Hematologic/Lymphatic: Reports: No Symptoms Immunologic: Reports: No Symptoms ED EXAM, ENT - Physical Exam Exam: See Below Exam Limited By: No Limitations General Appearance: Alert, Moderate Distress Mouth/Throat: Normal Oropharynx, Dental Abcess (Involving tooth #1 which is eroded down to the level of the gingiva.), Dental Pain (Tooth #1), Dental Tenderness, Gum Swelling, Other (There are number of teeth both molar and premolar that have advanced dental caries with erosion into the dentin.) Head: Atraumatic, Normocephalic Neck: Normal Inspection, Supple, Non-Tender, Full Range of Motion. No: Lymphadenopathy (R), Lymphadenopathy (L) Respiratory/Chest: No Respiratory Distress Course - Vital Signs Last Recorded V/S: Last Vital Signs Temp 36.5 C 12/27/20 21:02 Pulse 69 12/27/20 20:56 Resp 16 12/27/20 20:56 BP 114/74 12/27/20 20:56 Pulse Ox 100 12/27/20 20:56 - Re-Assessments/Exams Free Text/Narrative Re-Assessment/Exam: 12/27/20 21:07 examination of the mouth reveals numerous advanced dental caries with erosion into dentin involving multiple teeth including chipping of tooth #9, deep erosion of tooth #30, deep erosion of tooth #28, and multiple other teeth with less advanced dental caries. I offered to do a dental block, however, the patient is afraid of needles and declined and would rather take oral pain medicine instead. We will put her on Toradol 10 mg 4 times daily for pain control. I will start her on clindamycin 300 mg 3 times daily for 10 days for the dental infection. The patient will need to follow-up with a dentist as this tooth #1 will need to be extracted or it will continue to be a source for infection. There is no impending airway issues. The patient is having no difficulty handling her secretions. At this time she is suitable for discharge home in satisfactory condition. Departure - Departure Time of Disposition: 21:11 Disposition: Home, Self-Care 01 Clinical Impression: Dental abscess, Dental caries into pulp - Discharge Information *PRESCRIPTION DRUG MONITORING PROGRAM REVIEWED*: Not Applicable *COPY OF PRESCRIPTION DRUG MONITORING REPORT IN PATIENT JEFF: Not Applicable Instructions: Dental Abscess, [id number] Referrals: PCP,None [Primary Care Provider] - Care Plan Goals: Follow-up as soon as possible with a dentist as this tooth will likely need to be extracted. Sepsis Event Note (ED) - Evaluation Sepsis Screening Result: No Definite Risk - Focused Exam Vital Signs: Vital Signs Temp Pulse Resp BP Pulse Ox 12/27/20 21:02 36.5 C 12/27/20 20:56 36.5 C 69 16 114/74 100 - Problem List & Annotations (1) Dental abscess SNOMED Code(s): 254021066 Code(s): K04.7 - PERIAPICAL ABSCESS WITHOUT SINUS Status: Acute Priority: Medium Current Visit: Yes (2) Dental caries into pulp SNOMED Code(s): 797888018 Code(s): K02.9 - DENTAL CARIES, UNSPECIFIED Status: Acute Priority: Medium Current Visit: Yes - Problem List Review Problem List Initiated/Reviewed/Updated: Yes
== END 2020-12-27 21:27 | disposition home or self-care (01) ==
LOC: JP.ED 20:48
DX: K04.7 Periapical abscess without sinus (principal); K02.9 Dental caries, unspecified; J45.909 Unspecified asthma, uncomplicated; Z88.0 Allergy status to penicillin; Z72.0 Tobacco use
CPT/HCPCS: 99282; 99283

== ENCOUNTER 2021-02-11 19:19 | Emergency (ER) | payer MEDICAID ==
--- NOTE | 2021-02-11 19:50 | EDM.PDOC ---
ED HPI GENERAL MEDICAL PROBLEM - General Chief Complaint: ENT Problem Stated Complaint: TOOTH ABCSESS,RT SIDE Time Seen by Provider: 02/11/21 19:39 Source of Information: Reports: Patient, Old Records History Limitations: Reports: No Limitations - History of Present Illness INITIAL COMMENTS - FREE TEXT/NARRATIVE: Karishma is a 25-year-old female who is known to me from previous visit in December. She is presenting to the ED with recurrence of dental abscesses involving teeth #1, 2, 31 and 30. These are the teeth that were involved in the last episode which were abscessed due to deep dental caries into the pulp. She is scheduled to have her teeth extracted by dentistry this week, however, it appears that the abscess have returned prompting her to come in for evaluation tonight. 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 Just had baby Musculoskeletal History: Reports: None Neurological History: Reports: None Psychiatric History: Reports: None Endocrine/Metabolic History: Reports: None Hematologic History: Reports: Anemia Immunologic History: Reports: None Oncologic (Cancer) History: Reports: None Dermatologic History: Reports: None - Past Surgical History Other HEENT Surgeries/Procedures: wears glasses Respiratory Surgical History: Reports: None Endocrine Surgical History: Reports: None Neurological Surgical History: Reports: None Musculoskeletal Surgical History: Reports: None Dermatological Surgical History: Reports: None Social & Family History - Family History Family Medical History: No Pertinent Family History - Tobacco Use Tobacco Use Status *Q: Current Every Day Tobacco User Years of Tobacco use: 10 Packs/Tins Daily: 0.2 - Caffeine Use Caffeine Use: Reports: Coffee, Soda - Recreational Drug Use Recreational Drug Use: No ED ROS ENT - Review of Systems Review Of Systems: See Below Constitutional: Reports: No Symptoms HEENT: Reports: Dental Pain Respiratory: Reports: No Symptoms Cardiovascular: Reports: No Symptoms Endocrine: Reports: No Symptoms GI/Abdominal: Reports: No Symptoms : Reports: No Symptoms Musculoskeletal: Reports: No Symptoms Skin: Reports: No Symptoms Neurological: Reports: No Symptoms Psychiatric: Reports: No Symptoms Hematologic/Lymphatic: Reports: No Symptoms Immunologic: Reports: No Symptoms ED EXAM, ENT - Physical Exam Exam: See Below Exam Limited By: No Limitations General Appearance: Alert, Mild Distress Mouth/Throat: Normal Oropharynx, Dental Abcess (Teeth #1, 2, 30 and 31), Dental Pain (Teeth #1, 2, 30, 31), Dental Tenderness Head: Atraumatic, Normocephalic Neck: Normal Inspection, Supple, Non-Tender, Full Range of Motion. No: Lymphadenopathy (R), Lymphadenopathy (L) Lymphatic: No Adenopathy Course - Vital Signs Last Recorded V/S: Last Vital Signs Temp 36.7 C 02/11/21 19:37 Pulse 82 02/11/21 19:37 Resp 16 02/11/21 19:37 BP 135/93 H 02/11/21 19:37 Pulse Ox 100 02/11/21 19:37 Departure - Departure Time of Disposition: 19:51 Disposition: Home, Self-Care 01 Clinical Impression: Dental abscess - Discharge Information Instructions: Dental Abscess, [id number] Referrals: PCP,Enzo [Primary Care Provider] - Care Plan Goals: We are starting you on clindamycin 300 mg 4 times a day for 10 days for the infection. I have also prescribed you Toradol 10 mg 4 times a day for pain control. In addition I have given you a prescription for for hydrocodone to supplement the pain control for the next day or 2 until the infection is under better control. Follow-up with your dentist as soon as possible. Sepsis Event Note (ED) - Evaluation Sepsis Screening Result: No Definite Risk - Focused Exam Vital Signs: Vital Signs Temp Pulse Resp BP Pulse Ox 02/11/21 19:37 36.7 C 82 16 135/93 H 100 - Problem List & Annotations (1) Dental abscess SNOMED Code(s): 358915161 Code(s): K04.7 - PERIAPICAL ABSCESS WITHOUT SINUS Status: Acute Priority: Medium Current Visit: Yes - Problem List Review Problem List Initiated/Reviewed/Updated: Yes
== END 2021-02-11 20:00 | disposition home or self-care (01) ==
LOC: JP.ED 19:19
DX: K04.7 Periapical abscess without sinus (principal); J45.909 Unspecified asthma, uncomplicated; Z88.0 Allergy status to penicillin; Z72.0 Tobacco use
CPT/HCPCS: 99282

== ENCOUNTER 2021-08-11 07:53 | Emergency (ER) | payer MEDICAID ==
--- NOTE | 2021-08-11 08:24 | EDM.PDOC ---
ED HPI GENERAL MEDICAL PROBLEM - General Chief Complaint: Respiratory Problem Stated Complaint: COUGH AND UPPPER BACK PAIN,TROUBLE BREATHING Time Seen by Provider: 08/11/21 08:15 Source of Information: Reports: Patient History Limitations: Reports: No Limitations - History of Present Illness INITIAL COMMENTS - FREE TEXT/NARRATIVE: 26-year-old female with cough and cold symptoms for the past 3 days, her children have viral syndromes and was seen earlier this week. She does have asthma and feels short of breath but no fevers or chills. She has not lost her taste or smell. Some generalized body aches and nasal congestion. The cough is becoming productive. Onset: Gradual Duration: Day(s): (3 days of symptoms) Associated Symptoms: Reports: Cough, Malaise, Shortness of Breath, Other (Nasal congestion). 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 Just had baby Musculoskeletal History: Reports: None Neurological History: Reports: None Psychiatric History: Reports: None Endocrine/Metabolic History: Reports: None Hematologic History: Reports: Anemia Immunologic History: Reports: None Oncologic (Cancer) History: Reports: None Dermatologic History: Reports: None - Infectious Disease History Infectious Disease History: Reports: None - Past Surgical History Other HEENT Surgeries/Procedures: wears glasses Respiratory Surgical History: Reports: None Endocrine Surgical History: Reports: None Neurological Surgical History: Reports: None Musculoskeletal Surgical History: Reports: None Dermatological Surgical History: Reports: None Social & Family History - Family History Family Medical History: No Pertinent Family History - Tobacco Use Tobacco Use Comment: smoker states not to much - Caffeine Use Caffeine Use: Reports: Coffee, Soda - Recreational Drug Use Recreational Drug Use: No ED ROS GENERAL - Review of Systems Review Of Systems: See Below Constitutional: Reports: Malaise. Denies: Fever, Chills HEENT: Reports: Rhinitis, Sinus Problem. Denies: Throat Pain Respiratory: Reports: Shortness of Breath, Cough, Sputum Cardiovascular: Denies: Chest Pain GI/Abdominal: Denies: Nausea, Vomiting Musculoskeletal: Reports: Muscle Pain (Generalized muscle aches) Skin: Denies: Rash Neurological: Denies: Headache ED EXAM, GENERAL - Physical Exam Exam: See Below Exam Limited By: No Limitations General Appearance: Alert, No Apparent Distress, Other (Frequent dry cough) Eye Exam: Bilateral Eye: Normal Inspection Ears: Normal TMs Throat/Mouth: Normal Inspection Head: Atraumatic Respiratory/Chest: No Respiratory Distress, Lungs Clear, Other (Despite the frequent coughing subjective shortness of breath, her O2 sats are 100%) Cardiovascular: Regular Rate, Rhythm. No: Tachycardia Neurological: Alert, Oriented Psychiatric: Normal Affect, Normal Mood Skin Exam: Warm, Dry Course - Vital Signs Last Recorded V/S: Last Vital Signs Temp 98.6 F 08/11/21 08:05 Pulse 78 08/11/21 08:05 Resp 16 08/11/21 08:05 BP 129/80 08/11/21 08:05 Pulse Ox 100 08/11/21 08:05 - Orders/Labs/Meds Labs: Laboratory Tests 08/11/21 Range/Units 08:21 SARS-CoV-2 RNA (KATYA) Negative (NEGATIVE) - Re-Assessments/Exams Free Text/Narrative Re-Assessment/Exam: 08/11/21 08:23 COVID-19 was obtained. 08/11/21 09:23 Covid was negative, patient will rest the next couple of days and treat this like a viral cold and may need to miss work for a few days. She can return if worsening. Departure - Departure Time of Disposition: 09:33 Disposition: Home, Self-Care 01 Clinical Impression: Viral respiratory illness - Discharge Information Instructions: Viral Illness, Adult Referrals: Radha Roman CNM [Primary Care Provider] - Forms: ED Department Discharge Care Plan Goals: Rest, fluids, increase activity as tolerated and return to work when you feel you are able. Recheck at the emergency room if worsening such as increased difficulty breathing. Use your inhaler as needed. Sepsis Event Note (ED) - Focused Exam Vital Signs: Vital Signs Temp Pulse Resp BP Pulse Ox 08/11/21 08:05 98.6 F 78 16 129/80 100
== END 2021-08-11 09:33 | disposition home or self-care (01) ==
LOC: JP.ED 07:53
DX: B34.9 Viral infection, unspecified (principal); Z20.822 Contact with and (suspected) exposure to COVID-19; Z88.0 Allergy status to penicillin
CPT/HCPCS: 99283; U0002

== ENCOUNTER 2022-03-13 09:17 | Emergency (ER) | payer MEDICAID | END 2022-03-13 11:47 | disposition home or self-care (01) | LOC: JP.ED 09:17 | DX: S63.653A Sprain of metacarpophalangeal joint of left middle finger, initial encounter (principal); J45.909 Unspecified asthma, uncomplicated; Z88.0 Allergy status to penicillin; X58.XXXA Exposure to other specified factors, initial encounter | CPT/HCPCS: 73130-LT; 99281; 99283-25 ==

== ENCOUNTER 2022-05-06 08:37 | Emergency (ER) | payer OTHER, MEDICAID ==
[2022-05-06] MEDS ORDERED: Acetaminophen/HYDROcodone 325-5 MG Tab PO ONE (10:12)
== END 2022-05-06 11:12 | disposition home or self-care (01) ==
LOC: JP.ED 08:37
DX: S92.415A Nondisplaced fracture of proximal phalanx of left great toe, initial encounter for closed fracture (principal); V86.99XA Unspecified occupant of other special all-terrain or other off-road motor vehicle injured in nontraffic accident, initial encounter; Z72.0 Tobacco use
CPT/HCPCS: 73630-LT; 99281; 99284; A9270-GY

== ENCOUNTER 2022-05-10 10:39 | Emergency (ER) | payer OTHER, MEDICAID | END 2022-05-10 12:18 | disposition home or self-care (01) | LOC: JP.ED 10:39 | DX: S46.911A Strain of unspecified muscle, fascia and tendon at shoulder and upper arm level, right arm, initial encounter (principal); J45.909 Unspecified asthma, uncomplicated; F17.210 Nicotine dependence, cigarettes, uncomplicated; Z88.0 Allergy status to penicillin; V86.35XA Unspecified occupant of 3- or 4- wheeled all-terrain vehicle (ATV) injured in traffic accident, initial encounter; Y92.410 Unspecified street and highway as the place of occurrence of the external cause | CPT/HCPCS: 73030-RT; 99282; 99284 ==

== ENCOUNTER 2023-04-04 01:13 | Emergency (ER) | payer MEDICAID | END 2023-04-04 02:30 | disposition home or self-care (01) | LOC: JP.ED 01:13 | DX: O20.9 Hemorrhage in early pregnancy, unspecified (principal); O99.511 Diseases of the respiratory system complicating pregnancy, first trimester; J45.909 Unspecified asthma, uncomplicated; Z88.0 Allergy status to penicillin; Z3A.01 Less than 8 weeks gestation of pregnancy | CPT/HCPCS: 36415; 84702; 99284 ==

== ENCOUNTER 2023-05-08 00:59 | Emergency (ER) | payer MEDICAID ==
[2023-05-08 01:56] LABS: BASOPHILS ABSOLUTE AUTO 0.04 K/uL (0.00-0.10); BASOPHILS PERCENT AUTO 0.6 % (0.1-1.3); EOSINOPHILS ABSOLUTE AUTO 0.12 K/uL (0.00-0.40); EOSINOPHILS PERCENT AUTO 1.8 % (0.0-5.4); HEMATOCRIT 32.5 % (34.3-46.0); IMMATURE GRAN PERCENT AUTO 0.3 % (0.0-0.7); LYMPHOCYTES ABSOLUTE AUTO 2.14 K/uL (0.8-3.3); MEAN CORPUSCULAR HEMOGLOBIN 28.8 pg (31.6-35.5); MEAN CORPUSCULAR HGB CONC 33.8 g/dL (31.6-35.5); MEAN CORPUSCULAR VOLUME 85.1 fL (81.4-99.0); MONOCYTES ABSOLUTE AUTO 0.71 K/uL (0.20-0.90); MONOCYTES PERCENT AUTO 10.6 % (3.3-12.6); NEUTROPHILS ABSOLUTE AUTO 3.66 K/uL (1.0-7.6); NEUTROPHILS PERCENT AUTO 54.7 % (40.0-78.1); PLATELET COUNT,PLT 267 K/uL (130-375); RED BLOOD CELL COUNT 3.82 M/uL (3.77-5.24); WHITE BLOOD CELL COUNT,WBC 6.7 K/uL (3.2-11.0)
[2023-05-08 02:02] LABS: IMMATURE GRAN ABSOLUTE AUTO 0.02 K/uL (0.00-0.23)
[2023-05-08 02:17] LABS: A/G RATIO 0.9 (1.2-2.2); ALANINE AMINOTRANSFERASE,ALT 17 U/L (12-78); ALBUMIN 2.9 g/dL (3.4-5.0); ALKALINE PHOSPHATASE 44 U/L (46-116); ASPARTATE AMNIOTRANSFERASE,AST 13 U/L (15-37); BILIRUBIN TOTAL 0.2 mg/dL (0.2-1.0); BLOOD UREA NITROGEN,BUN 18 mg/dL (7-18); CALCIUM 8.3 mg/dL (8.5-10.1); CARBON DIOXIDE,CO2 22 mmol/L (21-32); CHLORIDE,CL 104 mmol/L (100-108); CREATININE 0.8 mg/dL (0.6-1.0); EST CRCL DRUG DOSING (CG) 81.33 mL/min; ESTIMATED GFR 102 mL/min (>60); GLUCOSE RANDOM 92 mg/dL (74-106); POTASSIUM,K 4.4 mmol/L (3.6-5.2); PROTEIN TOTAL,TP 6.3 g/dL (6.4-8.2); SODIUM,NA 134 mmol/L (140-148)
[2023-05-08 02:18] LABS: ANION GAP 12.4 mmol/L (5.0-14.0)
== END 2023-05-08 03:05 | disposition home or self-care (01) ==
LOC: JP.ED 00:59
DX: O20.9 Hemorrhage in early pregnancy, unspecified (principal); O99.331 Smoking (tobacco) complicating pregnancy, first trimester; F17.210 Nicotine dependence, cigarettes, uncomplicated; Z88.0 Allergy status to penicillin; Z3A.11 11 weeks gestation of pregnancy
CPT/HCPCS: 36415; 76801; 80053; 85025; 99284

== ENCOUNTER 2023-11-10 18:56 | Emergency (ER) | payer MEDICAID | END 2023-11-10 20:53 | disposition home or self-care (01) | LOC: JP.ED 18:56 | DX: O62.4 Hypertonic, incoordinate, and prolonged uterine contractions (principal); Z3A.36 36 weeks gestation of pregnancy; Z88.0 Allergy status to penicillin | CPT/HCPCS: 99283 ==